=== PATIENT | male | born 1980 | race Caucasian/White ===

== ENCOUNTER → 2023-12-30 06:28 | Outpatient (REF) | payer OTHER, SELFPAY | LOC: HWRAD 06:28 | PROVIDERS: ATTENDING PHYSICIAN Internal Medicine | DX: F17.290 Nicotine dependence, other tobacco product, uncomplicated (principal); R06.02 Shortness of breath | CPT/HCPCS: 71046 ==

== ENCOUNTER → 2024-09-15 07:02 | Outpatient (REF) | payer OTHER, SELFPAY | LOC: HWRAD 07:02 | PROVIDERS: ATTENDING PHYSICIAN Emergency Medicine | DX: F17.211 Nicotine dependence, cigarettes, in remission (principal) | CPT/HCPCS: 71046 ==

== ENCOUNTER → 2025-03-29 12:12 | Outpatient (REF) | payer OTHER, SELFPAY | LOC: RAD 12:12 | PROVIDERS: ATTENDING PHYSICIAN Student in an Organized Health Care Education/Training Program | DX: Z87.19 Personal history of other diseases of the digestive system (principal); R10.9 Unspecified abdominal pain; F10.220 Alcohol dependence with intoxication, uncomplicated | CPT/HCPCS: 74177; Q9967 ==